=== PATIENT | female | born 1955 | race Caucasian/White ===

== ENCOUNTER 2017-05-06 09:19 | Emergency (ER) | payer BC ==
[~2017-05-06] VITALS: Ht 157.5 cm; Wt 65.0 kg
[~2017-05-06 09:19] MED LIST: ASPI1TAB57 PO; OMEP20TA93 PO; TRIAM.1%T TOPICAL
[2017-05-06 09:21] VITALS: BP 156/90; PULSE 99; RESP 17; TEMP 97.7; O2SAT 98
[2017-05-06] MEDS ORDERED: JOINCAP2 (09:46)
[2017-05-06] MEDS ORDERED: VITATAB11 (09:46)
[2017-05-06] MEDS ORDERED: VITA200013 (09:46)
[2017-05-06] MEDS ORDERED: SODIUM CHLOR 0.9% 1000 ML INJ 1,000 ML IV SCH (10:00)
[2017-05-06 10:17] LABS: AUTOMATED NEUTROPHIL # 3.9 TH/MM3 (1.8-7.7); BASOPHIL # 0.1 TH/MM3 (0-0.2); BASOPHIL % 1.1 % (0.0-2.0); EOSINOPHIL # 0.2 TH/MM3 (0-0.4); EOSINOPHIL % 2.8 % (0.0-4.0); HEMOGLOBIN 13.2 GM/DL (11.6-15.3); LYMPH % 31.5 % (9.0-44.0); LYMPHOCYTE # 2.1 TH/MM3 (1.0-4.8); MEAN CELL VOLUME 85.8 FL (80.0-100.0); MEAN CORPUSCULAR HEMOGLOBIN 29.8 PG (27.0-34.0); MEAN CORPUSCULAR HGB CONC 34.7 % (32.0-36.0); MEAN PLATELET VOLUME 7.2 FL (7.0-11.0); MONO % 5.9 % (0.0-8.0); MONOCYTE # 0.4 TH/MM3 (0-0.9); NEUT % 58.7 % (16.0-70.0); PLATELET COUNT 394 TH/MM3 (150-450); RED BLOOD COUNT 4.42 MIL/MM3 (4.00-5.30); RED CELL DISTRIBUTION WIDTH 13.5 % (11.6-17.2); WHITE BLOOD COUNT 6.7 TH/MM3 (4.0-11.0)
[2017-05-06 10:40] LABS: ALBUMIN 4.1 GM/DL (3.4-5.0); AST (GOT) 20 U/L (15-37); BICARBONATE 25.5 MEQ/L (21.0-32.0); BLOOD UREA NITROGEN 10 MG/DL (7-18); CALCIUM 9.1 MG/DL (8.5-10.1); CHLORIDE 103 MEQ/L (98-107); CREATININE 0.67 MG/DL (0.50-1.00); GLOMERULAR FILTRATION RATE 89 ML/MIN (>89); GLUCOSE,RANDOM 90 MG/DL (74-106); SODIUM (NA) 135 MEQ/L (136-145)
[2017-05-06 10:44] LABS: ALKALINE PHOSPHATASE 76 U/L (45-117); ALT (GPT) 17 U/L (10-53); TOTAL BILIRUBIN ADULT 0.3 MG/DL (0.2-1.0); TOTAL PROTEIN 7.8 GM/DL (6.4-8.2)
--- NOTE | 2017-05-06 10:59 | PD ---
HPI Chief Complaint: Abdominal Pain Time Seen by Provider: 10:00 Travel History International Travel<30 days: No Contact w/Intl Traveler<30days: No Traveled to known affect area: No History of Present Illness HPI This is a 62-year-old female who presents today with points of right upper quadrant pain 4 days. Patient reports the pain comes and goes. She reports that stabbing and sharp. She states it radiates to her right upper back as well. She denies any fevers, chills. She is uncertain whether there is relation to eating or not. She does report that she has not been eating a lot secondary to the discomfort. There is nausea with no vomiting or diarrhea. Her urine is normal. There are no other complaints at this time examination. [facility] Past Medical History Cerebrovascular Accident: Yes (TIA) Diminished Hearing: No ?: Not Past Surgical History Other Surgery: Yes (cyst off falopian tube, deviate septum repair) Social History Alcohol Use: Yes (occ) Tobacco Use: No Substance Use: No Allergies-Medications (Allergen,Severity, Reaction): Coded Allergies: No Known Allergies (Unverified Adverse Reaction, Unknown, 05/06/17) Reported Meds & Prescriptions Reported Meds & Active Scripts Active Omeprazole 20 Mg Tab 20 Mg PO DAILY Reported Joint Support Complex (Misc Natural Products) 500-100 Mg Cap Vitamin B Complex (B-Complex Vitamins) 1 Tab Vitamin D (Cholecalciferol) 2,000 Unit Cap Aspirin 81 (Aspirin) 81 Mg Tabdr 81 Mg PO DAILY Review of Systems Except as stated in HPI: all other systems reviewed are Neg HENT: No: Headaches, Neck Pain Cardiovascular: No: Chest Pain or Discomfort, Palpitations Respiratory: No: Cough, Shortness of Breath Gastrointestinal: Positive: Nausea, Abdominal Pain (Right upper quadrant), Loss of Appetite, No: Vomiting, Diarrhea, Constipation, Changes in Bowel Habits , Indigestion Genitourinary: No: Frequency, Dysuria Musculoskeletal: Positive: Pain (Pain in the right back that radiates from the right upper quadrant), No: Weakness Skin: No Rash, No Lesions Neurologic: No: Weakness, Dizziness, Headache Physical Exam Narrative GENERAL: Well-developed well-nourished female in no acute respiratory distress. SKIN: Focused skin assessment warm/dry. HEAD: Atraumatic. Normocephalic. EYES: Pupils equal and round. No scleral icterus. No injection or drainage. ENT: No nasal bleeding or discharge. Mucous membranes pink and moist. NECK: Trachea midline. Supple. CARDIOVASCULAR: Regular rate and rhythm. No murmur appreciated. RESPIRATORY: No accessory muscle use. Clear to auscultation. Breath sounds equal bilaterally. GASTROINTESTINAL: Abdomen soft, nondistended. There is tenderness to palpation in the right upper quadrant. There is no rebound. There is mild guarding. MUSCULOSKELETAL: No obvious deformities. No clubbing. No cyanosis. No edema. NEUROLOGICAL: Awake and alert. No obvious cranial nerve deficits. Motor grossly within normal limits. Normal speech. Data Data Last Documented VS Vital Signs Date Time Temp Pulse Resp B/P (MAP) Pulse Ox O2 Delivery O2 Flow Rate FiO2 05/06/17 15:43 77 15 130/73 (92) 96 Room Air 05/06/17 09:21 97.7 Orders Orders Complete Blood Count With Diff (05/06/17 10:00) Comprehensive Metabolic Panel (05/06/17 10:00) Lipase (05/06/17 10:00) Us Abdomen Gallbladder (05/06/17 10:00) Iv Access Insert/Monitor (05/06/17 10:00) Ecg Monitoring (05/06/17 10:00) Oximetry (05/06/17 10:00) Sodium Chlor 0.9% 1000 Ml Inj (Ns 1000 M (05/06/17 10:00) Ct Abd/Pel W Iv Contrast(Rout) (05/06/17 11:39) Oral Contrast - Adult (05/06/17 11:50) Diatrizoate Liq ( Gastroemma Liq) (05/06/17 11:58) Iohexol 350 Inj (Omnipaque 350 Inj) (05/06/17 14:52) Ketorolac Inj (Toradol Inj) (05/06/17 15:45) Electrocardiogram (05/06/17 17:16) Labs Laboratory Tests Test 05/06/17 10:06 White Blood Count 6.7 TH/MM3 Red Blood Count 4.42 MIL/MM3 Hemoglobin 13.2 GM/DL Hematocrit 38.0 % Mean Corpuscular Volume 85.8 FL Mean Corpuscular Hemoglobin 29.8 PG Mean Corpuscular Hemoglobin Concent 34.7 % Red Cell Distribution Width 13.5 % Platelet Count 394 TH/MM3 Mean Platelet Volume 7.2 FL Neutrophils (%) (Auto) 58.7 % Lymphocytes (%) (Auto) 31.5 % Monocytes (%) (Auto) 5.9 % Eosinophils (%) (Auto) 2.8 % Basophils (%) (Auto) 1.1 % Neutrophils # (Auto) 3.9 TH/MM3 Lymphocytes # (Auto) 2.1 TH/MM3 Monocytes # (Auto) 0.4 TH/MM3 Eosinophils # (Auto) 0.2 TH/MM3 Basophils # (Auto) 0.1 TH/MM3 CBC Comment DIFF FINAL Differential Comment Blood Urea Nitrogen 10 MG/DL Creatinine 0.67 MG/DL Random Glucose 90 MG/DL Total Protein 7.8 GM/DL Albumin 4.1 GM/DL Calcium Level 9.1 MG/DL Alkaline Phosphatase 76 U/L Aspartate Amino Transf (AST/SGOT) 20 U/L Alanine Aminotransferase (ALT/SGPT) 17 U/L Total Bilirubin 0.3 MG/DL Sodium Level 135 MEQ/L Potassium Level 4.2 MEQ/L Chloride Level 103 MEQ/L Carbon Dioxide Level 25.5 MEQ/L Anion Gap 7 MEQ/L Estimat Glomerular Filtration Rate 89 ML/MIN Lipase 152 U/L MDM Medical Decision Making Medical Screen Exam Complete: Yes Emergency Medical Condition: Yes Differential Diagnosis Cholecystitis versus pancreatitis versus peptic ulcer disease versus atypical appendicitis Narrative Course 62-year-old female presents with right-sided upper abdominal pain with radiation to her right flank. Patient denies any urinary symptoms. The patient states that it has been there 2 days. It comes and goes. It is not specifically exacerbated by eating. There is no reported chest pain, chest pressure. Patient has no history of coronary artery disease. Laboratory tests were within normal limits. EKG showed no evidence of acute ST elevation or depression and was a normal EKG. Ultrasound of the gallbladder was negative for acute process. CT scan of the pelvis showed no evidence of acute abnormalities. I discussed the negative findings with the patient. I did discuss that this could be atypical peptic ulcer disease and still could be her gallbladder however there is no evidence of gallstones or inflammation. She will be started on omeprazole 20 mg daily. She is been informed to have a bland diet. She is instructed to return if she also worsening symptoms i.e. increased pain, chest pain, shortness of breath, fevers chills, nausea vomiting diarrhea or any other reason that concerns her. She will follow-up with her primary care physician. Diagnosis Primary Impression: Right upper quadrant abdominal pain Additional Instructions: [place] diet. Follow-up with primary care physician. Return if increased pain, fevers chills, nausea vomiting diarrhea, or any other recent concerns you. Avoid aspirin and NSAIDs, especially on an empty stomach. Med/Other Pt SpecificInfo: Prescription(s) given Scripts Omeprazole (Omeprazole) 20 Mg Tab 20 MG PO DAILY, #30 TAB 0 Refills Prov: Merlin Flores MD 05/06/17 Disposition: 01 DISCHARGE HOME Condition: Stable Merlin Flores MD May 06, 2017 10:59
--- NOTE | 2017-05-06 11:25 | RADRPT ---
EXAM DATE/TIME: 05/06/2017 10:10 [facility] COMPARISON: No previous studies available for comparison. INDICATIONS : Right upper quadant pain. MEDICAL HISTORY : TIA. Abdominal pain. SURGICAL HISTORY : Deviate septum repair. Cyst removal. ENCOUNTER: Initial ACUITY: 1 day PAIN SCORE: 4/10 LOCATION: Right upper quadrant MEASUREMENTS: LIVER: 14.9 cm length COMMON DUCT: 5 mm RIGHT KIDNEY: 9.9 x 4.3 x 5.4 cm FINDINGS: LIVER: Normal echotexture without focal lesion or ductal dilatation. COMMON DUCT: No intraluminal mass or stone visualized. GALLBLADDER: Contains no stones, demonstrates no wall thickening or pericholecystic fluid. PANCREAS: The visualized portions are within normal limits. RIGHT KIDNEY: No evidence of hydronephrosis, stone, or mass. CONCLUSION: Normal examination. Kenny Joiner MD on May 06, 2017 at 11:21 Board Certified Radiologist. This report was verified electronically.
[2017-05-06 11:50] VITALS: BP 130/68; PULSE 69; RESP 15; O2SAT 98
[2017-05-06] MEDS ORDERED: DIATRIZOATE MEGLUM/DIATRIZOATE SOD 9 ML CUP ONE (11:58)
[2017-05-06] MEDS ORDERED: IOHEXOL 350 MG/ML 10 ML VIAL (for RAD DIAG) IVCONTRAST ONE (14:52)
--- NOTE | 2017-05-06 15:20 | RADRPT ---
EXAM DATE/TIME: 05/06/2017 14:42 [facility] COMPARISON: No previous studies available for comparison. INDICATIONS : Right upper quadrant pain for 2 days IV CONTRAST: 69 cc Omnipaque 350 (iohexol) IV ORAL CONTRAST: Prescribed oral contrast ingested. RADIATION DOSE: 7.18 CTDIvol (mGy) MEDICAL HISTORY : None SURGICAL HISTORY : None. ENCOUNTER: Initial ACUITY: 2 days PAIN SCALE: 5/10 LOCATION: Right upper quadrant TECHNIQUE: Volumetric scanning of the abdomen and pelvis was performed. Using automated exposure control and ad justment of the mA and/or kV according to patient size, radiation dose was kept as low as reasonably achievable to obtain optimal diagnostic quality images. DICOM format image data is available electro nically for review and comparison. FINDINGS: Lung base is are clear. The liver, spleen, pancreas and adrenals are unremarkable I do not see on the right upper quadrant pain. There is symmetric renal function There no inflammatory changes about the gallbladder Cecum and terminal ileum appear normal There is symmetric renal function Minimal diverticula are present in the pelvis without diverticulitis Small fibroid uterus. CONCLUSION: Negative for inflammatory process. Roni Holland MD FACR on May 06, 2017 at 15:16 Board Certified Radiologist. This report was verified electronically.
[2017-05-06 15:43] VITALS: BP 130/73; PULSE 77; RESP 15; O2SAT 96
[2017-05-06] MEDS ORDERED: KETOROLAC TROMETHAMINE 30 MG/ML (IVP) VIAL IV PUSH ONE (15:45)
[2017-05-06] MEDS ORDERED: OMEP20TA93 PO (17:33)
[2017-05-06 17:48] VITALS: BP 142/68; PULSE 80; RESP 16; O2SAT 99
[2017-05-06 17:55] VITALS: RESP 16
--- NOTE | 2017-05-07 14:38 | EKG ---
Date Performed: 05/06/2017 Time Performed: 17:21:32 PTAGE: 62 years EKG: Sinus rhythm NORMAL ECG NO PREVIOUS TRACING DOCTOR: Sanchez Acuna Interpretating Date/Time 05/07/2017 14:31:23
== END 2017-05-06 17:59 | disposition home or self-care (01) ==
LOC: NEPE 09:19
DX: R10.11 Right upper quadrant pain (principal)
CPT/HCPCS: 74177; 76705; 80053; 83690; 85025; 93005; 96361; 96374; 99285; J1885; J7030; Q9963; Q9967